=== PATIENT | female | born 1965 | race Two or more races ===

== ENCOUNTER 2025-03-03 11:09 | Outpatient (AMB) | payer MEDICAID, SELFPAY ==
--- NOTE | 2025-03-03 11:20 | AMB.GYNCLNOT ---
Vital Signs 03/03/25 11:33 Weight 59.591 kg Weight Measurement Method Standing Scale BP 158/90 H Blood Pressure Source Automatic Cuff Blood Pressure Location Left Upper Arm Position Sitting Respiration 18 Pulse 94 Pulse Source Monitor Temp 97.2 F Temp Source Oral Pulse Oximetry (%) 96 Oxygen Delivery Method Room Air Allergies/Home Meds Allergies & Medications Allergies NKA* Allergy (Uncoded 03/03/25 11:20) Medication Reconciliation No Known Home Medications 03/03/25 [History Confirmed 03/03/25] Intake Visit Data Collection New Patient or Established: Established Patient (seen at [facility] within 3 years) Reason for Visit:: Referral for possible pelvic organ prolapse Seen by Clinical Staff ONLY (RN/MA): No Magnetic Tape Winder Required: Yes Magnetic Tape Winder's name/title: KRYSTA TAPIA /EMBOSSING MACHINE OPERATOR Do You Feel Safe at Home: Yes Authorities Contacted: N/A PCP or OBGYN visit in last 3 months: Yes Date of Last PCP or OBGYN visit: 12/26/24 Hx Now: No Are you currently on any form of Control: No Pain Present Currently: No Pain Scale Used: Rivera-Michaels/Numerical Pain scale:: 0 Smoking Status Smoking Status: Never smoker 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 1. Little interest or pleasure in doing things: not at all 2. Feeling down, depressed, or hopeless: not at all Total score: 0 PHQ-9 3. Trouble falling or staying asleep, or sleeping too much: Not at all 4. Feeling tired or having little energy: Not at all 5. Poor appetite or overeating: Not at all 6. Feeling bad about yourself - or that you are a failure or have let yourself or your family down: Not at all 7. Trouble concentrating on things, such as reading the newspaper or watching television: Not at all 8. Moving or speaking so slowly that other people could have noticed? - Or the opposite - being so fidgety or restless that you have been moving around a lot more than usual: not at all 9. Thoughts that you would be better off or of hurting yourself in some way: Not at all Total score: 0 If you checked off any problems, how difficult have these problems made it for you to do your work, take care of things at home, or get along with other people?: not difficult at all Source: Developed by Drs. Michael Morales, Carmen Agosto, Bob Cornejo and colleagues, with an educational syeda from [employer]. Depression screen completed yes Social History Living Situation History Marital Status: Lives With: Family Housing: House Tobacco History Smoking Status: Never smoker Second Hand Smoke Exposure: No Alcohol History Alcohol Intake: Never Domestic Abuse History Do You Feel Safe at Home: Yes Past Medical History Past Medical History Have you ever been diagnosed with any of the following: Cardiology Problems Hypercholesterolemia: Yes Hypertension: Yes Reproductive Problems Breast Cancer: No Endometriosis: No Fibroids: No Genital Herpes: No Gonorrhea: No Pelvic Inflammatory Disease: No Polycystic Ovarian Syndrome: No Previous Pregnancies: Yes (One CS 4 vaginal deliveries) Uterine Prolapse: Yes (by pt report) Endocrine Problems Diabetes Mellitus Type 2: Yes (Pre DM no meds yet) History of Present Illness HPI Narrative The patient is a 60-year-old -0-0-5 history of x 1 and vaginal delivery x 4 in the past. She was referred from one of the primary care providers in the area for an evaluation of possible pelvic organ prolapse. Patient is Greek-speaking only. My medical massage therapist, Krysta, is in the room for the entire interview and and physical exam. I do not have any referral papers at all on the chart or scanned in. But apparently she was a referral. Per patient she has no significant past medical history except elevated blood pressure elevated cholesterol and she is prediabetic. She did not list her medications for us ,she had a Pap smear a month ago and a mammogram 3 years ago. Her chief complaint is a bulge in her vagina, worse with standing. She denies any incontinence. She denies any dysuria. She denies any hematuria. She denies having to splint to empty her bladder or to have a bowel movement. She denies any blood in her stools. She does report a bump near her rectum and wonders if she has a hemorrhoid. Exam General Limitations: language barrier (Greek-speaking only. All interview and exam is performed with Krysta LUNA in room) General Appearance: alert, in no apparent distress, comfortable, cooperative, healthy appearing and well groomed Neck Neck exam: Present normal inspection, full ROM and trachea midline Chest Chest inspection: Present normal inspection and symmetric chest wall rise Resp Respiratory exam: Present normal lung sounds bilaterally Card Cardiovascular exam: Present regular rate, normal rhythm and normal heart sounds Abdominal Abdominal exam: Present soft and normal bowel sounds External exam: Present normal external exam and other (+1-2 cystocele upon bearing down) Speculum exam: Present normal speculum exam Bimanual exam: Present normal bimanual exam and other (Uterus is anteverted and not enlarged no adnexal masses) Extremities Extremities exam: Present normal inspection and full ROM Psych Psychiatric exam: Present normal affect and normal mood Skin Skin exam: Present warm, dry, intact and normal color Assessment & Plan Diagnosis / Problem List (1) Cystocele with first degree uterine prolapse: Status: Acute Assessment and Plan: Patient was told she has a very small cystocele. She is denying any incontinence problems. She is denying any dysuria. She just feels a bulge. She does not have to splint in order to empty her bladder. She does not have to splint in order to empty her rectum. Options were given including watchful waiting versus pessary versus surgery. If patient needs surgical repair she will have to be referred out to a urogynecologist. At this point we do not have a pessary fitting kit but if the patient desires a pessary, she will have to make a follow-up appointment once we have a fitting kit available. Upon further discussion, patient opts for watchful waiting. Frequent voiding and ensuring patient is not constipated was discussed with the patient. She will follow-up yearly for an annual exam with her primary care. Office Procedures OB Clinic LOC & Office Proc's Nursing/Assessment Patient Status: Established Patient OB Clinic Nursing Assessment: BP Monitoring, Medication Reconciliation, Update PMH in EMR and Vital Signs OB Clinic Coordination of Care: Consent,records obtained, informed consent, Education Simp Pt/Fam and Staff clarify orders Miscellaneous Interventions: Pelvic no cultures Established Patient Charge Established Patient Point Assignment: 85 Established Patient Point Charge: EP Level 3 (80-115)
[2025-03-03 11:33] VITALS: BP 158/90; PULSE 94; RESP 18; TEMP 36.2; O2SAT 96
== END 2025-03-03 12:02 | disposition home or self-care (01) ==
LOC: HODSOBC 11:09
PROVIDERS: PCP Nurse Practitioner Family; Referring Provider Nurse Practitioner Family; Supervising Provider Obstetrics & Gynecology; Visit Provider Obstetrics & Gynecology
DX: N81.2 Incomplete uterovaginal prolapse (principal); E78.00 Pure hypercholesterolemia, unspecified; R73.03 Prediabetes; I10 Essential (primary) hypertension
CPT/HCPCS: 99213; G0463